=== PATIENT | female | born 1990 | race Caucasian/White ===

== ENCOUNTER 2016-11-13 23:21 | Emergency (ER) ==
[2016-11-13 23:31] VITALS: BMI 42.8
[2016-11-13 23:42] LABS: BILIRUBIN,URINE Negative (NEGATIVE); KETONES,URINE Negative (NEGATIVE); LEUKOCYTE ESTERASE ,URINE Trace (NEGATIVE); NITRITE,URINE Negative (NEGATIVE); PROTEIN,URINE Negative (NEGATIVE); URINE PREGNANCY INTERNAL QC INTERNAL QC VALID; URINE, BLOOD Negative (NEGATIVE)
[2016-11-13 23:43] LABS: ADD URINE MICROSCOPIC YES
[2016-11-13] MEDS ORDERED: SODIUM CHLORIDE 1,000 ML IV STA (23:47)
[2016-11-13] MEDS ORDERED: MORPHINE 4 MG/ML SYRINGE IM STA (23:47)
[2016-11-13] MEDS ORDERED: TORADOL IVP STA (23:47)
[2016-11-13] MEDS ORDERED: ZOFRAN 4 MG/2 ML IVP STA (23:48)
[2016-11-13 23:53] LABS: BACTERIA,URINE 2+ (NOT PRESENT)
--- NOTE | 2016-11-14 00:15 | ED.PDOC ---
General ED Provider: Dr. AP DE LA TORRE Chief Complaint: Back Pain Stated Complaint: Patient is a 26 year old female who comes to the ER with mid epigastric pain radiating to the back that started today. She was placed on Adipex 37.5 mg starting today. Time Seen by Physician: 23:50 Mode of Arrival: Walk-In Information Source: Patient Exam Limitations: No limitations Primary Care Provider: JERILYN LOO Nursing and Triage Documentation Reviewed and Agree: Yes GI Complaint Exam - Abdominal Pain Complaint/Exam Onset: Sudden Duration: 1 day Symptoms Are: Still present Timing: Constant Initial Severity: Severe Current Severity: Severe Location of Pain: Epigastric Radiates To: Reports: Back Character: Reports: Dull, Aching Aggravating: Reports: None Alleviating: Reports: None Associated Signs and Symptoms: Reports: Back pain, Nausea. Denies: Diaphoresis , Fever, Cough, Chest pain, Dizziness, Constipation, Blood in stool, Dysuria, Urinary frequency, Decreased urine output, Decreased appetite, Vaginal bleeding , Vaginal discharge, Vomiting, Diarrhea, Sore throat, Decreased activity AAA Risk Factors: Reports: None Cardiac Risk Factors: Reports: None Ectopic Risk Factors: Reports: None Ovarian Torsion Risk Factors: Reports: None Surgical Obstruction Risk Factors: Reports: None Abdominal Findings: Absent: Pulsatile mass, Abdominal distention, Rebound tenderness, Peritoneal signs, CVA Tenderness Differential Diagnoses: Appendicitis, Bowel Obstruction, Pancreatitis, Ureteral Stone, GB, PUD, UTI, , Ectopic , Ovarian Cyst Review of Systems - Review Of Systems Constitutional: Reports: No symptoms Eyes: Reports: No symptoms Ears, Nose, Mouth, Throat: Reports: No symptoms Respiratory: Reports: No symptoms Cardiac: Reports: No symptoms GI: Reports: Nausea : Reports: No symptoms Musculoskeletal: Reports: No symptoms Skin: Reports: No symptoms Neurological: Reports: No symptoms Endocrine: Reports: No symptoms Hematologic/Lymphatic: Reports: No symptoms All Other Systems: Reviewed and Negative Past Medical History - Past Medical History Endocrine: Reports: None Cardiovascular: Reports: None Respiratory: Reports: None Hematological: Reports: None Gastrointestinal: Reports: PUD, GERD Genitourinary: Reports: None Neuro/Psych: Reports: Anxiety, Depression Musculoskeletal: Reports: None Cancer: Reports: None Last Menstrual Period: 11/06/06 - Surgical History General Surgical History: Reports: None - Family History Family History: Reports: None - Social History Smoking Status: Never smoker Hx Substance Use: No Alcohol Screening: Occasionally Physical Exam - Physical Exam Appearance: Ill-appearing, Obese Ill-appearing: Severe Pain Distress: Severe Eyes: JOE, EOMI, Conjunctiva clear Neck: Supple Respiratory: Airway patent Cardiovascular: Pulses normal, Tachycardia GI/: Soft, Tender Musculoskeletal: Normal strength, ROM intact, No edema, No calf tenderness Skin: Warm, Dry Neurological: Sensation intact, Motor intact Psychiatric: Anxious Interpretation - Radiology Interpretation Radiology Interpretation By: Radiologist Radiology Results: Positive Exam Interpreted: CT Scan (cholelithais) Re-Evaluation - Re-Evaluation Time of Re-Evaluation: 01:12 Status: Improved Vital Signs Stable: Yes Appearance: NAD Physician Notification - Case Discussed Physician Notified: Dr. Perez Time of Notification: 01:05 (acepted and willbe getting surgery in the morning. ) Critical Care Note - Critical Care Note Total Time (mins): 10 Course - Course Hematology/Chemistry: 11/14/16 00:10 11/14/16 00:10 Orders, Labs, Meds: Lab Review 11/13/16 11/14/16 23:30 00:10 WBC 14.79 H RBC 5.00 Hgb 13.4 Hct 40.1 MCV 80.2 L MCH 26.8 L MCHC 33.4 RDW Coeff of Ruiz 13.3 Plt Count 307 Immature Gran % (Auto) 0.4 Neut % (Auto) 64.8 Lymph % (Auto) 26.8 [place] % (Auto) 5.7 Eos % (Auto) 1.6 Baso % (Auto) 0.7 Immature Gran # (Auto) 0.1 Neut # 9.6 H Lymph # 4.0 H [place] # 0.9 Eos # 0.2 Baso # 0.1 Sodium 138 Potassium 3.7 Chloride 101 Carbon Dioxide 27 Anion Gap 13.7 BUN 14 Creatinine 0.88 Estimated GFR (MDRD) 78.00 BUN/Creatinine Ratio 15.90 Glucose 108 Calcium 9.7 Total Bilirubin 0.86 AST 12 L ALT 10 L Alkaline Phosphatase 65 Total Protein 7.5 Albumin 3.9 Globulin 3.6 Albumin/Globulin Ratio 1.08 Amylase 28 Lipase 26 Urine Color Yellow Urine Clarity Clear Urine pH 7.0 Ur Specific [place] 1.020 Urine Protein Negative Urine Glucose (UA) Negative Urine Ketones Negative Urine Blood Negative Urine Nitrite Negative Urine Bilirubin Negative Urine Urobilinogen 1.0 Ur Leukocyte Esterase Trace Urine Microscopic RBC 0-2 Urine Microscopic WBC 0-2 Ur Squamous Epith Cells 2-5 Urine Bacteria 2+ Urine Test Negative Orders Category Date Time Status ED IV/MEDIPORT/POWERPORT .ONCE EMERGENCY 11/13/16 23:48 Active AMYLASE Stat LAB 11/13/16 23:48 Completed CBC W/ AUTO DIFF Stat LAB 11/13/16 23:48 Completed COMPREHENSIVE METABOLIC PANEL Stat LAB 11/13/16 23:48 Completed LIPASE Stat LAB 11/13/16 23:48 Completed URINALYSIS C & S IF INDICATED Stat LAB 11/13/16 23:30 Completed URINE CULTURE Routine LAB 11/13/16 23:53 Received URINE Stat LAB 11/13/16 23:30 Completed 0.9 % Sodium Chloride [Saline Flush] MEDS 11/13/16 23:48 Ordered 1 syr IVF PRN PRN Ketorolac Tromethamine [Toradol] MEDS 11/13/16 23:47 Discontinued 30 mg IVP ONCE STA Morphine Sulfate [Morphine 4 mg/ml Syringe] MEDS 11/14/16 00:25 Discontinued 4 mg IVP ONCE STA Ondansetron HCl/Pf [Zofran 4 mg/2 ml] MEDS 11/13/16 23:48 Discontinued 4 mg IVP ONCE STA Pantoprazole Sodium [Protonix IV] MEDS 11/14/16 00:51 Stat 80 mg IVP ONCE STA Sodium Chloride 0.9% [Sodium Chloride] 1,000 ml MEDS 11/13/16 23:[address] ABD/PEL WO RENAL STONE PROT Stat RADS 11/13/16 23:48 Completed Medications Generic Name Dose Route Start Last Admin Trade Name Freq PRN Reason Stop Dose Admin Sodium Chloride 1 syr 11/13/16 23:48 Saline Flush IVF PRN PRN To flush IV Discontinued Medications Generic Name Dose Route Start Last Admin Trade Name Freq PRN Reason Stop Dose Admin Sodium Chloride 1,000 mls @ 1,000 mls/hr 11/13/16 23:47 11/14/16 00:14 Sodium Chloride IV 11/14/16 00:46 1,000 mls/hr BOLUS STA Administration Ketorolac Tromethamine 30 mg 11/13/16 23:47 11/14/16 00:24 Toradol IVP 11/13/16 23:48 30 mg ONCE STA Administration Morphine Sulfate 4 mg 11/14/16 00:25 11/14/16 00:29 Morphine 4 Mg/Ml Syringe IVP 11/14/16 00:26 4 mg ONCE STA Administration Ondansetron HCl 4 mg 11/13/16 23:48 11/14/16 00:25 Zofran 4 Mg/2 Ml IVP 11/13/16 23:49 4 mg ONCE STA Administration Pantoprazole Sodium 80 mg 11/14/16 00:51 Protonix Iv IVP 11/14/16 00:52 ONCE STA Vital Signs: Temp Pulse Resp BP Pulse Ox 11/13/16 23:24 97.6 F 105 H 18 157/104 H 98 Departure - Departure Time of Disposition: 00:28 Disposition: TSF SHORT-TRM HOSP Discharge Problem: Cholecystitis Instructions: Cholecystitis (ED) Condition: Stable Pt referred to PMD for follow-up: No Allergies/Adverse Reactions: Allergies No Known Allergies Allergy (Unverified 11/13/16 23:27) Home Medications: Ambulatory Orders Escitalopram Oxalate [Lexapro] 10 mg PO DAILY 11/13/16 Phentermine HCl 37.5 mg PO DAILY 11/13/16 Disposition Discussed With: Patient, Family
[2016-11-14 00:19] LABS: BASOPHILS # (AUTO) 0.1 K/uL (0-0.2); BASOPHILS % (AUTO) 0.7 % (0.0-3.0); EOSINOPHILS # (AUTO) 0.2 K/ul (0.0-0.7); EOSINOPHILS % (AUTO) 1.6 % (0.0-7.0); HEMATOCRIT 40.1 % (37.0-47.0); HEMOGLOBIN 13.4 g/dl (12.0-16.0); IMMATURE GRANULOCYTE % (AUTO) 0.4 % (0.0-5.0); LYMPHOCYTES % (AUTO) 26.8 (10.0-50.0); MEAN CORPUSCULAR HEMOGLOBIN 26.8 pg (27.0-31.0); MEAN CORPUSCULAR HGB CONC 33.4 (31.8-35.4); MEAN CORPUSCULAR VOLUME 80.2 fl (81.0-99.0); MONOCYTES # (AUTO) 0.9 K/uL (0.4-2.0); MONOCYTES % (AUTO) 5.7 (0-10); NEUTROPHILS # (AUTO) 9.6 K/ul (2.0-6.9); NEUTROPHILS % (AUTO) 64.8; PLATELET COUNT 307 10^3/uL (140-440); WHITE BLOOD COUNT 14.79 K/ul (4.6-10.2)
--- NOTE | 2016-11-14 00:20 | CT ---
Exam: CT of the abdomen and pelvis without contrast History: Midepigastric pain Technique: [address] of the abdomen and pelvis without intravascular contrast FINDINGS: The lung bases are clear. Cholelithiasis with calculus possibly in the gallbladder neck or cystic duct. The gallbladder is distended without pericholecystic inflammation. The pancreas, sp hayder and adrenal glands appear normal. Kidneys and proximal collecting system are unremarkable. The appendix is normal. Bowel loops demonstrate normal caliber. No inflamatory change seen in the mesent kaci or retroperitoneum. Pelvic genitourinary structures appear normal. Pelvic bowel loops are unremarkable. No inflammatory change in the pelvic fat. No acute abnormality of the abdominal or pelvic skeleton. Impression: 1. No inflammatory process, bowel or urinary obstruction is seen. 2. Cholelithiasis with calculus possibly within the cystic duct or low gallbladder neck. Correlate for clinical evidence of cholecystitis.
[2016-11-14] MEDS ORDERED: MORPHINE 4 MG/ML SYRINGE IVP STA (00:25)
[2016-11-14 00:37] LABS: ALBUMIN 3.9 g/dL (3.4-5.0); ALBUMIN/GLOBULIN RATIO 1.08; ANION GAP 13.7; BILIRUBIN,TOTAL 0.86 mg/dL (0.00-1.20); BUN/CREATININE RATIO 15.9; CALCIUM 9.7 mg/dL (8.2-10.2); CREATININE 0.88 mg/dL (0.60-1.30); POTASSIUM 3.7 mmol/L (3.5-5.10); TOTAL PROTEIN 7.5 g/dL (6.4-8.2)
[2016-11-14] MEDS ORDERED: PROTONIX IV IVP STA (00:51)
[2016-11-14 00:56] VITALS: BP 131/89; TEMP 97.7
== END 2016-11-14 02:00 | disposition short-term general hospital (02) ==
LOC: ED 23:21
DX: K81.9 Cholecystitis, unspecified (principal); Z79.899 Other long term (current) drug therapy
CPT/HCPCS: 36415; 74176; 80053; 81001; 81025; 82150; 83690; 85025; 87086; 96361; 96374; 96375; 99285

== ENCOUNTER 2016-11-14 02:00 | Outpatient (CLI) ==
[2016-11-13 23:31] VITALS: BMI 42.8
== END 2016-11-14 02:01 ==
LOC: AMBL 02:00
PROVIDERS: ATTEND Internal Medicine Geriatric Medicine
DX: R10.9 Unspecified abdominal pain (principal); K81.9 Cholecystitis, unspecified